=== PATIENT | female | born 1995 | race Caucasian/White ===

== ENCOUNTER 2023-11-11 06:49 | Emergency (ER) | payer SELFPAY ==
--- NOTE | ~2023-11-11 | CT_ITS ---
EXAMINATION: CT HEAD WITHOUT CONTRAST CLINICAL INFORMATION: Fall and syncope. EtOH. COMPARISON: None. TECHNIQUE: Contiguous axial imaging was performed from the skull base to vertex without intravenous administration of contrast. This CT examination was performed using dose optimization techniques as appropriate, variously including the following: *Automated exposure control *Adjustment of mA and/or kV according to patient size (this includes techniques or standardized protocols for targeted exams where dose is matched to indication/reason for exam; i.e. extremities or head) *Use of iterative reconstruction technique DLP: 704 mGy-cm. FINDINGS: There is no intracranial hemorrhage, large infarction, or mass lesion. There is no extra-axial collection. The ventricles are normal in size and configuration without evidence of hydrocephalus. The visualized paranasal sinuses and mastoid air cells are clear. CT/CT head/brain wo IV con IMPRESSION: No acute intracranial abnormality.
[2023-11-11 07:02] VITALS: BP 128/87; BP 136/84; PULSE 110; PULSE 96; RESP 20; TEMP 36.6; O2SAT 96; O2SAT 98; BMI 29.2
--- NOTE | 2023-11-11 07:09 | ED.ALCOHOL ---
HPI - Alcohol General Chief Complaint: Syncope Stated Complaint: ETOH Time Seen by Provider: 11/11/23 06:54 Source: patient, EMS, RN notes reviewed and old records reviewed Mode of arrival: EMS History of Present Illness HPI narrative: 28-year-old female with no known past medical history presenting to the ED of the EMS s/p called for intoxication and multiple falls/syncope. Patient admits to drinking EtOH, will not quantify. Denies being daily drinker or history of withdrawal seizures. Denies other drug use. reports patient was drinking EtOH, had a mechanical fall with head strike, and then had a syncopal episode witnessed by himself. EMS admits patient syncopized upon their arrival, no witnessed seizure-like activity or incontinence. Patient awake and alert since witnessed syncope with EMS, agitated. Patient does not remember incidents. Reports mild headache/feeling foggy at present. Denies neck/back pain, CP/SOB, abdominal pain Related Data Allergies Allergy/AdvReac Type Severity Reaction Status Date / Time pollen extracts Allergy Unknown Verified 11/11/23 07:19 Review of Systems Review of Systems: Constitutional: No Fever, No Chills Cardiovascular: No Chest Pain, No SOB Respiratory: No Cough Gastrointestinal: No Nausea, No Vomiting, No Abdominal pain Musculoskeletal: No joint pain, No Myalgias, No Joint Swelling Skin: No Skin Lesions, No rash Neuro: No Weakness, +head strike, +syncope History limited due to patient's acute mental status Yes all other systems are reviewed and are negative Constitutional: Constitutional: Reports as per [facility] Past Medical History Attestation statement: The following information was validated with the patient. Source: old records reviewed Social History Social History Advance Directives: No Advance Directives Information Provided: No Physical Exam ED Vital Signs: Vital Signs - 24 hr 11/11/23 07:02 Temperature 97.8 F Pulse Rate 96 Respiratory Rate 20 Blood Pressure 128/87 Pulse Oximetry 96 Oxygen Delivery Method Room Air BMI result Body Mass Index 29.2 Const Other: Agitated, combative but redirectable at this time. ETOH odor on breath. No evidence of trauma. General: no acute distress, alert and awake Orientation/consciousness: patient oriented x3 HENMT Head: Yes normal to inspection, Yes atraumatic, No Ayala's sign and No raccoon eyes Ears: hearing grossly normal bilaterally General nose exam: Normal external nose present Face and sinus: Yes normal facial exam Eyes General: appearance normal, both eyes and all related structures EOM: EOMs intact bilaterally Neck Neck: Yes normal visual inspection and Yes no meningeal signs Resp Effort & Inspection: normal respiratory effort and no respiratory distress Cardio Rate: regular rate Heart sounds: S1 normal heart sound present and S2 normal heart sound present GI Inspection: Yes normal to inspection Palpation (GI): Soft to palpation, nontender, no guarding and not rigid Back/Spine/Pelvis Other: No midline cervical/thoracic/lumbar spinous tenderness/step-off or deformity Skin Rashes: no rashes Wounds: no wounds Neuro General: patient oriented x3, gait normal, tone normal, moves all extremities, no meningeal signs, no focal motor deficits and CN's II-XI intact bilaterally Cranial nerves: Yes CN's II-XII intact bilaterally Gait exam (Neuro): Normal gait present Extrem General: Yes normal to inspection Course Course Course Narrative: -801--patient by doorway attempting to flee the emergency department. Agitated. States she is currently on her menses which has been confirmed. Unlikely . Will obtain CT without test as patient states she cannot provide urine and is uncooperative -security aware & at bedside CT head/brain wo IV con IMPRESSION: No acute intracranial abnormality. Results discussed with patient in has been at bedside. Patient has remained awake and alert. Discussed worrisome signs and symptoms and strict return precautions, and when to return to the emergency department. They verbalized understanding and feel safe for discharge at this time. Medical Decision Making Medical Decision Making MDM Narrative: 28-year-old female with no known past medical history presenting to the ED of the EMS s/p called for intoxication and multiple falls/syncope. On exam vital signs stable, ETOH odor on breath, intoxicated, ambulating with steady gait, agitated, A&O x3. No evidence of trauma. Concern for EtOH intoxication vs ICH vs metabolic abnormalities. Lower suspicion for PE/ACS at this time. Security at bedside. Will obtain head CT. Please refer to course for remaining clinical decision making, interpretation of labs/imaging results, and discussions with consultants and/or family members. Differential Diagnosis Differential Diagnoses: The differential diagnosis associated with the presentation includes As above Independent Interpretation I performed an independent interpretation of an: CT Scan Radiology Impression Discussion of test interpretation with radiology: I have reviewed the radiologist's reading. Independent Historian Clinical information obtained from an independent historian. History obtained from or confirmed by: Spouse and EMS External Record Review External record reviewed: Inpatient record, Office record, Outpatient record, Prior outpatient labs, Prior outpatient radiology, Primary care record and Outside ED record Tests considered The following testing was considered but not selected: As above Social Determinants Patient?s care significantly limited by Social Determinants of Health including: Inadequate housing, Alcoholism and drug addiction in family and Problems related to primary support group Discharge Plan Discharge Clinical Impression: Alcohol intoxication, Syncope, Fall Patient Disposition: Home, Self-Care Instructions: Syncope (DC), Abuse of Alcohol (DC) Additional Instructions: Please avoid alcohol and drug use Please follow-up with her doctor You are always welcome to return to the emergency department. if Symptoms persist or worsen return to the ED Referrals: [facility] [Provider Group] [facility] [Outside] Physician,Unknown J [Primary Care Provider] - Interventions: ED Discharge Assessment Last Done: 11/11/23 09:04 Discharge Date/Time: 11/11/23 08:30
--- NOTE | 2023-11-11 07:37 | PC.NURSE ---
pt alert and oriented, vss. pt arrived via ems. pt's called ambulance due to concern of pt passing out and altered mental. per ambulance pt also passed out in front of them then got up. the fall was witnessed by her , head strike, pt has no memory of passing out. pt's sent in a container with various meds. pt denies drug use admits to drinking alcohol. pt walking around ed, not wanting to sit and answer questions, instead she keeps saying she wants to leave because she's fine. pt seen by provider and ct ordered.
== END 2023-11-11 08:30 | disposition home or self-care (01) ==
PROVIDERS: Emergency Provider Emergency Medicine
DX: F10.120 Alcohol abuse with intoxication, uncomplicated (principal); R55 Syncope and collapse; Y90.9 Presence of alcohol in blood, level not specified
CPT/HCPCS: 70450; 99283; 99284

== ENCOUNTER 2023-11-16 00:53 | Emergency (ER) | payer SELFPAY ==
--- NOTE | 2023-11-16 | ECG_ITS ---
Test Reason : PALPITATIONS Blood Pressure : / mmHG Vent. Rate : 098 BPM Atrial Rate : 098 BPM P-R Int : 160 ms QRS Dur : 084 ms QT Int : 342 ms P-R-T Axes : 061 000 030 degrees QTc Int : 436 ms Poor data quality, interpretation may be adversely affected Sinus rhythm with marked sinus arrhythmia Septal infarct , age undetermined Abnormal ECG No previous ECGs available Referred By: Generic ED Physician Electronically Signed By:Kwesi Gutierres
--- NOTE | ~2023-11-16 | CT_ITS ---
EXAMINATION: CT head/brain wo IV con CLINICAL INFORMATION: Reason for Exam cervantes COMPARISON: CT head without contrast 11/11/2023 TECHNIQUE: Contiguous axial imaging was performed from the skull base to vertex without intravenous contrast. Sagittal and coronal reformatted images were obtained. This CT examination was performed using dose optimization techniques as appropriate, variously including the following: * Automated exposure control * Adjustment of mA and/or kV according to patient size (this includes techniques or standardized protocols for targeted exams where dose is matched to indication/reason for exam; i.e. extremities or head) Use of iterative reconstruction technique DLP: 702 mGy-cm FINDINGS: No acute osseous or soft tissue abnormality. The mastoids are clear. Right maxillary sinus retention cyst. There is no evidence of acute intracranial hemorrhage or territorial infarction. No abnormal mass effect or midline shift is seen. Edwards to white matter differentiation is well preserved. No extra-axial fluid collections are identified. No hydrocephalus. No significant volume loss. There is no abnormal attenuation within the brain parenchyma. CT/CT head/brain wo IV con IMPRESSION: No acute intracranial abnormality including hemorrhage, mass effect, hydrocephalus, or acute territorial edematous infarction.
[2023-11-16 00:54] VITALS: BP 125/85; PULSE 118; RESP 18; TEMP 36.8; O2SAT 100; BMI 26.6
[2023-11-16 01:38] VITALS: BP 121/88; PULSE 112; O2SAT 98
[2023-11-16 01:39] VITALS: O2SAT 98
--- NOTE | 2023-11-16 01:46 | ECG_ITS ---
Test Reason : SYNCOPE Blood Pressure : / mmHG Vent. Rate : 109 BPM Atrial Rate : 109 BPM P-R Int : 164 ms QRS Dur : 086 ms QT Int : 352 ms P-R-T Axes : 065 001 042 degrees QTc Int : 474 ms Sinus tachycardia Septal infarct (cited on or before 16-NOV-2023) Abnormal ECG When compared with ECG of 16-NOV-2023 01:03, Questionable change in initial forces of Septal leads Referred By: Vivien Camarena Electronically Signed By:Kwesi Gutierres
--- NOTE | 2023-11-16 01:53 | ED_ITS ---
HPI - Syncope General Chief Complaint: Syncope Stated Complaint: Palpitations/Syncope Time Seen by Provider: 11/16/23 01:34 History of Present Illness HPI narrative: Patient is a 28-year-old female with a history of not being responsive generally weak patient fell on November 11 after drinking. Patient did not have any residual effect. Patient was acting normal until approximately 22:00 when she developed headache feeling not quite right dizzy patient was sent in for further evaluation for spinning sensation. No sudden in the family. No nausea no vomiting. No chest pain. Patient from home. The headache is mainly over the right side. It is associated with nausea. Related Data Allergies Allergy/AdvReac Type Severity Reaction Status Date / Time pollen extracts Allergy Unknown Verified 11/16/23 01:04 Review of Systems 2 Review of Systems: Positive headache Positive dizziness PMFSH Past Medical History Attestation statement: The following information was validated with the patient. Social History Social History Advance Directives: No Advance Directives Information Provided: No Physical Exam 2 Vital Signs: Vital Signs: Last Vital Signs Temp 97.8 F 11/16/23 03:53 Pulse 97 11/16/23 03:53 Resp 19 11/16/23 03:53 BP 107/74 11/16/23 03:53 Pulse Ox 98 11/16/23 03:53 O2 Del Method Room Air 11/16/23 03:53 BMI result Body Mass Index 26.6 Appearance: Alert. Oriented X3. No acute distress. Eyes: Pupils equal, round and reactive to light. ENT: Pharynx normal. Neck: Normal inspection. Neck supple. No lymph nodes noted. No crepitus CVS: Normal heart rate and rhythm. Pulses normal. Normal S1 and S2 Respiratory: No respiratory distress. Breath sounds normal. No Wheezing. No rales Abdomen: Soft and nontender. No rigidity. No distention. good BS x4 Skin: Skin warm and dry. Normal skin color. Normal skin turgor. Extremities: No lower extremity edema. Neurovascular intact to all extremities. No Lacerations. No Rash Neuro: Oriented X 3. No motor deficit. No sensory deficit. Moving all extermities. No slurred speech Medications Administered Discontinued Medications Generic Name Dose Route Start Last Admin Trade Name Freq PRN Reason Stop Dose Admin Diphenhydramine HCl 25 mg 11/16/23 01:46 11/16/23 02:12 Diphenhydramine Hcl 50 Mg/Ml Vial IVPUSH 11/16/23 01:47 25 mg ONCE ONE Administration Sodium Chloride 1,000 mls @ 999 mls/hr 11/16/23 02:00 11/16/23 03:30 Ns IV 11/16/23 03:00 Infused .Q1H1M MAIRNO Infusion Metoclopramide HCl 10 mg 11/16/23 01:46 11/16/23 02:12 Metoclopramide Hcl 10 Mg/2 Ml Vial IVPUSH 11/16/23 01:47 10 mg ONCE ONE Administration Medical Decision Making Medical Decision Making [facility] Narrative: Patient complaining of nonspecific dizziness not prior right. Spinning sensation. Patient's eyes rolled back. Now also complaining of headache that is excruciating over [address] scan of the head was done. There is no evidence of bleeding on the CT. Patient's symptoms started about 4 hours prior making subarachnoid hemorrhage on likely patient's EKG showed a sinus pattern heart rate is 109 [place] QRS QTC within normal limits there is no acute ST segment elevation she was given hydration. Her labs were checked. The grossly okay. Symptomatic Leonie feel improved. Patient has no leg swelling. No history of blood clots. No history of control pills. Unlikely to be PE. Question vertigo type symptoms. Patient's tox screen came back positive for marijuana. Positive for amphetamine question secondary to ADHD medication. Patient given migraine treatment with good results. Headache basically gone. Differential Diagnosis Differential Diagnoses: The differential diagnosis associated with the presentation includes Dehydration, subarachnoid hemorrhage, vertigo, migraine Lab Data [facility] Lab Attestation statement: I reviewed the patient's lab results. 11/16/23 02:07 11/16/23 02:07 Labs: Lab Results 11/16/23 11/16/23 11/16/23 Range/Units 02:07 02:07 04:00 WBC 7.4 (4.8-10.8) X10*3/uL RBC 4.27 (4.20-5.50) X10*6/uL Hgb 13.0 (12.0-16.0) g/dl Hct 38.0 (37.0-47.0) % MCV 89.0 (80.0-98.0) fL MCH 30.4 (27.0-33.0) pg MCHC 34.2 (31.0-35.0) g/dl RDW 12.7 (11.0-16.0) % Plt Count 320 (160-400) X10*3/uL MPV 10.0 (9.4-12.3) fL Immature Gran % (Auto) 0.1 (0.0-0.4) % Neut % (Auto) 70.3 (45-73) % Lymph % (Auto) 20.7 (20-40) % Becker % (Auto) 7.7 (2-11) % Eos % (Auto) 0.7 (0-4) % Baso % (Auto) 0.5 (0-2) % Lymph # (Auto) 1.5 (1.2-4.9) X10*3/uL Becker # (Auto) 0.6 (0.1-1.2) X10*3/uL Eos # (Auto) 0.1 (0.0-0.4) X10*3/uL Baso # (Auto) 0.0 (0.0-0.2) X10*3/uL Abs Immat Gran (auto) 0.01 (0.00-0.03) X10*3/uL Absolute Neuts (auto) 5.2 (2.0-8.3) x10*3/uL Absolute Nucleated RBC 0.000 (0.0-0.012) X10*3/uL Nucleated RBC % (auto) 0.0 (0.0-0.2) /100WBC Sodium 142 (135-145) mmol/L Potassium 3.6 (3.3-5.1) mmol/L Chloride 107 (96-108) mmol/L Carbon Dioxide 25 (22-29) mmol/L Anion Gap 14 (12-20) BUN 18 H (9-16) mg/dL Creatinine 0.85 (0.5-1.4) mg/dL Estim Creat Clear Calc 101.0 Estimated GFR > 60 Random Glucose 105 (60-115) mg/dL Calcium 9.3 (8.4-10.2) mg/dL Total Bilirubin 0.5 (0.0-1.0) mg/dL Direct Bilirubin 0.2 (0.0-0.5) mg/dL AST 17 (5-31) U/L ALT 16 (0-31) U/L Alkaline Phosphatase 55 (39-117) U/L Troponin I High Sens < 2.7 (<3.5-17.0) ng/L Total Protein 7.0 (6.5-8.0) g/dL Albumin 4.4 (3.5-5.0) g/dL Beta HCG, Quant < 2 mIU/mL Urine Color Yellow Urine Appearance Clear Urine pH 6.0 (5.0-9.0) Ur Specific [place] 1.025 (1.005-1.025) Urine Protein Negative (Neg-Trace) mg/dL Urine Glucose (UA) Negative (Negative) mg/dL Urine Ketones Trace (Negative) mg/dL Urine Blood Negative (Negative) Urine Nitrite Negative (Negative) Ur Leukocyte Esterase Trace H (Negative) Urine RBC 3-5 H (0-2) /HPF Urine WBC 0-5 (0-5) /HPF Ur Squamous Epith Cells 6-10 (0-2) /HPF Urine Bacteria Trace (None Seen) Hyaline Casts 0-2 (0-2) /LPF Urine Opiates Screen Not Detected (Not Detect) Urine Fentanyl Screen Not Detected (Not Detect) Ur Barbiturates Screen Not Detected (Not Detect) Ur Phencyclidine Scrn Not Detected (Not Detect) Ur Amphetamines Screen POSITIVE H (Not Detect) U Benzodiazepines Scrn Not Detected (Not Detect) Urine Cocaine Screen Not Detected (Not Detect) U Marijuana (THC) Screen POSITIVE H (Not Detect) Ethyl Alcohol < 10 Cancelled mg/dL Independent Interpretation I performed an independent interpretation of an: EKG (My interpretation patient's EKG showed a sinus rhythm heart rate is [address] QTC within normal limits is no acute ST segment elevation.) and CT Scan (CT head was grossly negative for bleeding) Radiology Impression Discussion of test interpretation with radiology: I have reviewed the radiologist's reading. Independent Historian Clinical information obtained from an independent historian. History obtained from or confirmed by: Spouse Prescription Management No need for antibiotic antiviral or pain medication here Social Determinants Patient?s care significantly limited by Social Determinants of Health including: Alcoholism and drug addiction in family Discharge Plan Discharge Clinical Impression: Vasovagal syncope, Dehydration, Migraine Patient Disposition: Home, Self-Care Instructions: Syncope (DC), Migraine Headache (ED), Dehydration (ED) Referrals: Physician,Unknown J [Primary Care Provider] - 11/18/23
[2023-11-16] MEDS: 0.9 % Sodium Chloride 1,000 ML 999 ML IV (02:08)
[2023-11-16] MEDS: diphenhydrAMINE HCL 50 MG/ML VIAL 25 MG IVPUSH (02:12)
[2023-11-16] MEDS: Metoclopramide HCl 10 MG/2 ML VIAL IVPUSH (02:12)
[2023-11-16 02:13] LABS: MANUAL DIFF FLAG NO
[2023-11-16 02:17] LABS: Basophils Percent Auto 0.5 % (0-2); Eosinophils Absolute Auto 0.1 X10*3/uL (0.0-0.4); Eosinophils Percent Auto 0.7 % (0-4); Imm Gran Abs Auto 0.01 X10*3/uL (0.00-0.03); Imm Gran Pct Auto 0.1 % (0.0-0.4); Lymphocytes Absolute Auto 1.5 X10*3/uL (1.2-4.9); Lymphocytes Percent Auto 20.7 % (20-40); Mean Corpuscular HGB Conc 34.2 g/dl (31.0-35.0); Mean Corpuscular Hemoglobin 30.4 pg (27.0-33.0); Monocytes Absolute Auto 0.6 X10*3/uL (0.1-1.2); Monocytes Percent Auto 7.7 % (2-11); Neutrophils Absolute Auto 5.2 x10*3/uL (2.0-8.3); Neutrophils Percent Auto 70.3 % (45-73); Platelet Count 320 X10*3/uL (160-400); Red Blood Count 4.27 X10*6/uL (4.20-5.50); Red Cell Distribution Width 12.7 % (11.0-16.0); White Blood Count 7.4 X10*3/uL (4.8-10.8)
[2023-11-16 02:31] LABS: Alanine Aminotransferase 16 U/L (0-31); Albumin Level 4.4 g/dL (3.5-5.0); Alkaline Phosphatase 55 U/L (39-117); Anion Gap 14 (12-20); Aspartate Amino Transferase 17 U/L (5-31); Bilirubin Direct 0.2 mg/dL (0.0-0.5); Bilirubin Total 0.5 mg/dL (0.0-1.0); Blood Urea Nitrogen 18 mg/dL (9-16); Calcium 9.3 mg/dL (8.4-10.2); Carbon Dioxide 25 mmol/L (22-29); Chloride 107 mmol/L (96-108); Estimated Glomerular Filt Rate > 60; Ethanol < 10 mg/dL; Glucose Random 105 mg/dL (60-115); Potassium 3.6 mmol/L (3.3-5.1); Sodium 142 mmol/L (135-145)
[2023-11-16 02:36] LABS: Troponin-I High Sensitivity < 2.7 ng/L (<3.5-17.0)
[2023-11-16 02:37] LABS: HCG Quantitative < 2 mIU/mL
[2023-11-16 03:40] VITALS: BP 110/61; PULSE 101; RESP 17; O2SAT 97
[2023-11-16 03:53] VITALS: BP 107/74; PULSE 97; RESP 19; TEMP 36.6; O2SAT 98
[2023-11-16 04:11] LABS: Appearance Urine Clear; Color Urine Yellow; Glucose Urine UA Negative (Negative); Leukocyte Esterase Urine Trace (Negative); Nitrite Urine Negative (Negative); Specific Gravity - Urine 1.025 (1.005-1.025); UMIC TRIGGER UACC YES; Urine Blood Negative (Negative); Urine Ketones Trace mg/dL (Negative); Urine Protein Negative (Neg-Trace)
[2023-11-16 04:16] LABS: Bacteria Urine Trace (None Seen); Hyaline Casts Urine 0-2 /LPF (0-2); WBC Urine 0-5 /HPF (0-5)
[2023-11-16 04:21] LABS: Amphetamine Screen Urine POSITIVE (Not Detect); Barbiturates, Urine Not Detected (Not Detect); Benzodiazepines Screen Urine Not Detected (Not Detect); Cannabinoid Screen Urine POSITIVE (Not Detect); Cocaine Screen Urine Not Detected (Not Detect); Fentanyl, urine Not Detected (Not Detect); Opiate Screen Urine Not Detected (Not Detect); Phencyclidine Screen Urine Not Detected (Not Detect)
== END 2023-11-16 05:08 | disposition home or self-care (01) ==
PROVIDERS: Emergency Provider Emergency Medicine Emergency Medical Services
DX: R55 Syncope and collapse (principal); E86.0 Dehydration; G43.909 Migraine, unspecified, not intractable, without status migrainosus; Z79.899 Other long term (current) drug therapy; F12.90 Cannabis use, unspecified, uncomplicated
CPT/HCPCS: 36415; 70450; 80048; 80076; 80307; 81001; 84484; 84702; 85025; 93005; 96361; 96374; 96375; 99284; 99285; J1200; J2765

== ENCOUNTER → 2023-11-16 01:03 | Outpatient (BNV) | payer SELFPAY | PROVIDERS: Emergency Provider Emergency Medicine Emergency Medical Services; Visit Provider Internal Medicine Cardiovascular Disease | DX: I49.9 Cardiac arrhythmia, unspecified (principal); R94.31 Abnormal electrocardiogram [ECG] [EKG]; R00.0 Tachycardia, unspecified | CPT/HCPCS: 93010 ==

== ENCOUNTER 2023-12-05 17:29 | Emergency (ER) | payer MEDICAID, SELFPAY ==
[2023-12-05 17:55] VITALS: BP 117/74; PULSE 73; RESP 18; TEMP 36.6; O2SAT 100; BMI 28.3
--- NOTE | 2023-12-05 18:04 | ED.FEMALEGU ---
HPI - Female Genitourinary General Chief complaint: Urogenital-Female Stated complaint: abd pain, UTI? sweats, fever, back pain Time Seen by Provider: 12/06/23 00:09 Source: patient, RN notes reviewed and old records reviewed Mode of arrival: ambulatory Limitations: no limitations History of Present Illness HPI Narrative: 28-year-old female presents for evaluation of burning with urination, fevers, chills. Patient believes that she has a UTI as she has had similar symptoms in the past She is also concerned that she may be She is sexually active and not on control. Her last menstrual period was 11/07/2023 Denies any severe lower abdominal pain or flank pain. Related Data Previous Rx's Medication Instructions Recorded amoxicillin 500 mg capsule 500 mg PO Q12H #10 caps 12/06/23 Allergies Allergy/AdvReac Type Severity Reaction Status Date / Time pollen extracts Allergy Unknown Verified 11/16/23 01:04 Review of Systems Constitutional: Constitutional: Denies body ache(s), Reports chills, Reports fever(s) and Denies headache(s) Eyes: Eyes: Denies blurry vision ENT: Denies headache(s) and Denies sore throat Cardiovascular: Cardiovascular: Denies chest pain and Denies dyspnea Respiratory: Respiratory: Denies cough and Denies dyspnea Gastrointestinal: Gastrointestinal: Denies abdominal pain, Denies nausea and Denies vomiting Genitourinary: Genitourinary: Reports difficulty voiding, Reports dysuria and Reports pelvic pain Musculoskeletal: Musculoskeletal: Denies back pain Integumentary/Breasts: Skin/Breast: Denies rash Neurologic: Denies headache(s) PMFSH Social History Social History Advance Directives: No Advance Directives Information Provided: No Physical Exam Vital Signs: Vital Signs: Last Vital Signs Temp 98.9 F 12/06/23 02:26 Pulse 86 12/06/23 02:26 Resp 17 12/06/23 02:26 BP 117/74 12/05/23 17:55 Pulse Ox 99 12/06/23 02:26 O2 Del Method Room Air 12/06/23 02:26 BMI result Body Mass Index 28.3 Const: General: healthy appearing, comfortable, no acute distress, alert and awake Nutritional Appearance: well nourished Orientation/consciousness: patient oriented x3 HEENT: Head: Yes normocephalic and Yes atraumatic Eyes: Eyelids: Yes eyelids normal Conjunctivae: conjunctivae normal Sclerae: sclerae normal Corneas: corneas normal Pupils: Equal, round and reactive pupils present EOM: EOMs intact bilaterally Neck: Neck: Yes full ROM Resp: Effort & Inspection: normal respiratory effort, able to speak in complete sentences and not labored GI: Inspection: No distended Palpation (GI): Soft to palpation, not firm, nontender, no guarding and not rigid Skin: General skin exam: elasticity normal Neuro: General: patient oriented x3 Cranial nerves: Yes Equal, round and reactive pupils present and Yes Bilaterally intact EOM present Cognition (Neuro): normal cognition Course Course Course Narrative: RME; 28-year-old female presents to ED for dysuria, back pain flank pain chills, nausea and lower abdominal discomfort. Patient states no recent trauma. Patient last menstruation 11/07/2023. Labs ordered Medications Administered Discontinued Medications Generic Name Dose Route Start Last Admin Trade Name Freq PRN Reason Stop Dose Admin Amoxicillin 500 mg 12/06/23 02:15 12/06/23 02:23 Amoxicillin 500 Mg Capsule PO 12/06/23 02:16 500 mg ONCE ONE Administration Medical Decision Making Medical Decision Making [facility] Narrative: 28-year-old female presents for evaluation of burning with urination and pelvic pain. She feels this is similar to when she has had a UTI in the past. She is also concerned that she may be . Her labs are significant for a serum HCG of 271. Ultrasound of the pelvis cannot identify any gestational sac. This is likely due to early , however but ultimately cannot completely rule out ectopic . I recommend the patient return in 4 days for repeat hCG and ultrasound. Patient's UA appears infected but she does not appear septic, we will treat with amoxicillin due to the fact that she is . Patient is stable for discharge at this time. All questions were answered Differential Diagnosis Differential Diagnoses: The differential diagnosis associated with the presentation includes UTI Pelvic pain Cystitis Pyelonephritis Lab Data [facility] Lab Attestation statement: I reviewed the patient's lab results. Leukocytosis of 13.3 K with a left shift. No significant anemia, normal platelet count. Patient's chloride is this but normal at 110. Unsure etiology but could be normal variant for her, no other electrolyte abnormalities. Normal renal function 12/05/23 18:29 12/05/23 18:29 Labs: Lab Results 12/05/23 12/06/23 Range/Units 18:29 00:46 WBC 13.3 H (4.8-10.8) X10*3/uL RBC 4.36 (4.20-5.50) X10*6/uL Hgb 13.4 (12.0-16.0) g/dl Hct 38.6 (37.0-47.0) % MCV 88.5 (80.0-98.0) fL MCH 30.7 (27.0-33.0) pg MCHC 34.7 (31.0-35.0) g/dl RDW 12.6 (11.0-16.0) % Plt Count 312 (160-400) X10*3/uL MPV 10.6 (9.4-12.3) fL Immature Gran % (Auto) 0.3 (0.0-0.4) % Neut % (Auto) 81.3 H (45-73) % Lymph % (Auto) 11.9 L (20-40) % [place] % (Auto) 5.6 (2-11) % Eos % (Auto) 0.5 (0-4) % Baso % (Auto) 0.4 (0-2) % Lymph # (Auto) 1.6 (1.2-4.9) X10*3/uL [place] # (Auto) 0.7 (0.1-1.2) X10*3/uL Eos # (Auto) 0.1 (0.0-0.4) X10*3/uL Baso # (Auto) 0.1 (0.0-0.2) X10*3/uL Abs Immat Gran (auto) 0.04 H (0.00-0.03) X10*3/uL Absolute Neuts (auto) 10.8 H (2.0-8.3) x10*3/uL Absolute Nucleated RBC 0.000 (0.0-0.012) X10*3/uL Nucleated RBC % (auto) 0.0 (0.0-0.2) /100WBC Sodium 141 (135-145) mmol/L Potassium 3.9 (3.3-5.1) mmol/L Chloride 110 H (96-108) mmol/L Carbon Dioxide 24 (22-29) mmol/L Anion Gap 11 L (12-20) BUN 15 (9-16) mg/dL Creatinine 0.72 (0.5-1.4) mg/dL Estim Creat Clear Calc 114.2 Estimated GFR > 60 Random Glucose 92 (60-115) mg/dL Calcium 9.6 (8.4-10.2) mg/dL Total Bilirubin 0.5 (0.0-1.0) mg/dL Direct Bilirubin 0.2 (0.0-0.5) mg/dL AST 12 (5-31) U/L ALT 15 (0-31) U/L Alkaline Phosphatase 35 L (39-117) U/L Total Protein 7.1 (6.5-8.0) g/dL Albumin 4.6 (3.5-5.0) g/dL Lipase 19 (8-78) U/L Beta HCG, Quant 271 mIU/mL Urine Color Yellow Urine Appearance Cloudy Urine pH 5.5 (5.0-9.0) Ur Specific [place] >= 1.030 H (1.005-1.025) Urine Protein 30 (1+) H (Neg-Trace) mg/dL Urine Glucose (UA) Negative (Negative) mg/dL Urine Ketones Negative (Negative) mg/dL Urine Blood Moderate (2+) H (Negative) Urine Nitrite Negative (Negative) Ur Leukocyte Esterase Small (1+) H (Negative) Urine RBC 6-10 H (0-2) /HPF Urine WBC >50 H (0-5) /HPF Ur Squamous Epith Cells 0-2 (0-2) /HPF Urine Bacteria None Seen (None Seen) Hyaline Casts 0-2 (0-2) /LPF Urine Test WEAKLY POSITIVE H (NEGATIVE) Radiology Impression Discussion of test interpretation with radiology: I have reviewed the radiologist's reading. (No gestational sac or intrauterine gestation identified.) Discharge Plan Discharge Clinical Impression: Urinary tract infection, at early stage Patient Disposition: Home, Self-Care Instructions: (ED), Urinary Tract Infection in (ED) Additional Instructions: You are , based on your last menstrual cycle and your hormone of 271 it is very early in your You also have a urinary tract infection Take amoxicillin as directed and complete the course Return in 4 days for repeat hCG and repeat ultrasound Do not take ibuprofen for pain, you may take Tylenol which is safe in Follow-up with your primary doctor and OBGYN You should start taking vitamins Prescriptions: New amoxicillin 500 mg capsule 500 mg PO Q12H Qty: 10 0RF Interventions: ED Discharge Assessment Last Done: 12/06/23 02:27 Discharge Date/Time: 12/06/23 02:28
[2023-12-06 02:26] VITALS: PULSE 86; RESP 17; TEMP 37.2; O2SAT 99
== END 2023-12-06 02:28 | disposition home or self-care (01) ==
PROVIDERS: Emergency Provider Emergency Medicine
DX: O23.41 Unspecified infection of urinary tract in pregnancy, first trimester (principal); N39.0 Urinary tract infection, site not specified; Z3A.00 Weeks of gestation of pregnancy not specified
CPT/HCPCS: 36415; 76801; 76817; 80048; 80076; 81001; 81003; 81025; 83690; 84702; 85025; 87086; 99283; 99284

== ENCOUNTER 2023-12-25 08:47 | Emergency (ER) | payer MEDICAID, SELFPAY ==
[2023-12-25 09:11] VITALS: BP 112/70; BP 113/72; PULSE 101; PULSE 108; RESP 18; TEMP 37.3; O2SAT 97; O2SAT 98; BMI 30.3
--- NOTE | 2023-12-25 09:51 | ED.URI ---
HPI - URI/Sore Throat General Chief Complaint: Upper Respiratory Symptoms Stated Complaint: +COVIDN/V,WEAK,COUGH,SOB 97% RA PER EMS Time Seen by Provider: 12/25/23 09:06 Source: patient and RN notes reviewed Mode of arrival: ambulatory Limitations: no limitations History of Present Illness HPI Narrative: This is a 28-year-old female, 7 weeks , presenting to the emergency department with complaints of cough, shortness of breath, nausea, vomiting, weakness, fevers, and epigastric/left upper quadrant pain. Patient states that 2 nights ago she developed body aches, and cough. She states that yesterday her symptoms worsened and she reported to [facility] where she tested positive for COVID. She also received IV fluids and IV Zofran which provided her with some relief. She states that upon wakening this morning she feels as though her symptoms have worsened, stating she is now having worsening nausea and vomiting and has been unable to tolerate p.o. secondary to vomiting. She last took Tylenol this morning at 7:30 a.m.. Denies any diarrhea or constipation. No vaginal bleeding or discharge. No suprapubic tenderness. She reports that her family is sick at home with COVID as well. No other complaints or concerns at this time. MD elicited complaint: fever, cough and nasal congestion Onset (ago): day(s) Consistency: constant and progressively worsening Severity: moderate Able to tolerate fluids by mouth: No Relieving factors: nothing Context: sick contacts Associated symptoms: fever, chills, myalgias, nasal congestion, cough, chest pain, shortness of breath, abdominal pain, nausea, vomiting and diarrhea Treatments prior to arrival: none Related Data Previous Rx's Medication Instructions Recorded amoxicillin 500 mg capsule 500 mg PO Q12H #10 caps 12/06/23 Allergies Allergy/AdvReac Type Severity Reaction Status Date / Time pollen extracts Allergy Unknown Verified 11/16/23 01:04 Review of Systems Review of Systems: Yes all other systems are reviewed and are negative Constitutional: Constitutional: Reports as per [facility] Past Medical History Attestation statement: The following information was validated with the patient. Social History Social History Advance Directives: No Physical Exam Vital Signs: Vital Signs: Last Vital Signs Temp 99.1 F 12/25/23 12:00 Pulse 90 12/25/23 12:00 Resp 18 12/25/23 12:00 BP 121/86 12/25/23 12:00 Pulse Ox 98 12/25/23 12:00 O2 Del Method Room Air 12/25/23 12:00 BMI result Body Mass Index 30.3 Const: General: cooperative, comfortable and no acute distress Orientation/consciousness: patient oriented x3 Limitations: no limitations HEENT: Head: Yes normal to inspection, Yes normocephalic and Yes atraumatic Ears: hearing grossly normal bilaterally and TM's normal bilaterally General nose exam: Normal external nose present Face and sinus: Yes normal facial exam Mouth: Normal oral and palatal mucosa present, oropharynx normal and moist mucous membranes Throat: Yes posterior oropharynx normal, Yes tonsils normal and Yes uvula midline Eyes: General: appearance normal, both eyes and all related structures Eyelids: Yes eyelids normal Conjunctivae: conjunctivae normal Sclerae: sclerae normal Pupils: Equal, round and reactive pupils present EOM: EOMs intact bilaterally Neck: Neck: Yes normal visual inspection, Yes full ROM and Yes no lymphadenopathy Lymphatic: no lymphadenopathy noted Chest: Chest palpation & inspection: normal inspection of the chest Resp: Effort & Inspection: normal respiratory effort and able to speak in complete sentences Auscultation: clear to auscultation bilaterally, no crackles, no rales, no rhonchi and no wheezes Cardio: Rate: regular rate Rhythm: regular rhythm Heart sounds: S1 normal heart sound present and S2 normal heart sound present GI: Other: Epigastric tenderness to palpation and left upper quadrant tenderness, no lower abdominal tenderness, rebound or guarding. Inspection: Yes normal to inspection Skin: General skin exam: no rashes or lesions noted Trauma: no lacerations or abrasions Wounds: no wounds Neuro: General: patient oriented x3 and moves all extremities Cranial nerves: Yes Equal, round and reactive pupils present Extrem: General: Yes normal to inspection Right upper extremity: normal to inspection Left upper extremity: normal to inspection Right lower extremity: normal to inspection Left lower extremity: normal to inspection Course Reevaluation(s) Reevaluation #1: Labs returned, hypokalemic at 3.2, given 1 dose of potassium 40 mEq by mouth. Advised patient to follow-up with PCP or OBGYN to ensure that her potassium has improved. She is eating and drinking without difficulty. Denies any nausea or vomiting since receiving IV fluids and Zofran. Troponin negative, beta quant [id number]. No leukocytosis, patient tested positive for COVID. Likely the source of her symptoms. Discussed the importance of following up with OBGYN as well as continuing to stick to a bland diet, stay well hydrated. She was also given Tylenol. She states that her symptoms are much better and she is feeling comfortable enough to go home. She states that she has follow-up with OBGYN Patient given return precautions. Patient understands agrees with plan. Patient stable for discharge. Received medical records from [facility]. Patient was seen there yesterday where she had an ultrasound performed. Transvaginal ultrasound was performed, single live intrauterine estimated gestation weeks 3 days. Patient has not had any lower abdominal cramping, vaginal bleeding or discharge at today's visit. Medications Administered Discontinued Medications Generic Name Dose Route Start Last Admin Trade Name Freq PRN Reason Stop Dose Admin Acetaminophen 975 mg 12/25/23 13:23 12/25/23 13:44 Acetaminophen 325 Mg Tablet PO 12/25/23 13:24 975 mg ONCE ONE Administration Sodium Chloride 1,000 mls @ 999 mls/hr 12/25/23 09:54 12/25/23 11:30 Ns IV 12/25/23 10:54 Infused .Q1H1M ONE Infusion Sodium Chloride 1,000 mls @ 999 mls/hr 12/25/23 11:34 12/25/23 13:06 Ns IV 12/25/23 12:34 Infused .Q1H1M ONE Infusion Ondansetron HCl 4 mg 12/25/23 09:55 12/25/23 10:15 Ondansetron Hcl 4 Mg/2 Ml Vial IVPUSH 12/25/23 09:56 4 mg ONCE ONE Administration Potassium Chloride 40 meq 12/25/23 13:23 12/25/23 13:45 Potassium Chloride Er 20 Meq Tab.Er.Prt PO 12/25/23 13:24 40 meq ONCE ONE Administration Medical Decision Making Medical Decision Making [facility] Narrative: This is a 28-year-old female presenting to the emergency department for evaluation shortness, cough, nausea, vomiting, left upper quadrant pain and epigastric pain. She tested positive for COVID yesterday at [facility] where she was also given IV fluids and IV Zofran. She also had an ultrasound which revealed normal intrauterine gestation. On arrival, patient nontoxic appearing, appears to be in no acute distress. Mildly tachycardic at 1:01 a.m., patient afebrile. Dry mucous membranes. Abdomen is soft, with tenderness palpation in the epigastrium and left upper quadrant, no suprapubic tenderness, rebound or guarding. No vaginal bleeding or discharge. Plan: IV fluids, basic labs, EKG Differential Diagnosis Differential Diagnoses: The differential diagnosis associated with the presentation includes COVID, flu, electrolyte abnormality, gastritis, Admission/Observation Consideration of admission/observation: Escalation of care including admission/observation considered Patient would have been admitted to the hospital had her work up had any findings where hospital admission was appropriate and her clinical presentation warranted hospital admission. Lab Data [facility] Lab Attestation statement: I reviewed the patient's lab results. 12/25/23 10:15 12/25/23 10:14 Labs: Lab Results 12/25/23 12/25/23 Range/Units 10:14 10:15 WBC 7.7 (4.8-10.8) X10*3/uL RBC 3.96 L (4.20-5.50) X10*6/uL Hgb 12.1 (12.0-16.0) g/dl Hct 34.3 L (37.0-47.0) % MCV 86.6 (80.0-98.0) fL MCH 30.6 (27.0-33.0) pg MCHC 35.3 H (31.0-35.0) g/dl RDW 11.7 (11.0-16.0) % Plt Count 231 D (160-400) X10*3/uL MPV 9.8 (9.4-12.3) fL Immature Gran % (Auto) 0.3 (0.0-0.4) % Neut % (Auto) 87.4 H (45-73) % Lymph % (Auto) 5.0 L (20-40) % [place] % (Auto) 7.2 (2-11) % Eos % (Auto) 0.0 (0-4) % Baso % (Auto) 0.1 (0-2) % Lymph # (Auto) 0.4 L (1.2-4.9) X10*3/uL [place] # (Auto) 0.6 (0.1-1.2) X10*3/uL Eos # (Auto) 0.0 (0.0-0.4) X10*3/uL Baso # (Auto) 0.0 (0.0-0.2) X10*3/uL Abs Immat Gran (auto) 0.02 (0.00-0.03) X10*3/uL Absolute Neuts (auto) 6.7 (2.0-8.3) x10*3/uL Absolute Nucleated RBC 0.000 (0.0-0.012) X10*3/uL Nucleated RBC % (auto) 0.0 (0.0-0.2) /100WBC Sodium 136 (135-145) mmol/L Potassium 3.2 L (3.3-5.1) mmol/L Chloride 105 (96-108) mmol/L Carbon Dioxide 21 L (22-29) mmol/L Anion Gap 13 (12-20) BUN 8 L (9-16) mg/dL Creatinine 0.66 (0.5-1.4) mg/dL Estim Creat Clear Calc 128.8 Estimated GFR > 60 Random Glucose 75 (60-115) mg/dL Calcium 9.1 (8.4-10.2) mg/dL Total Bilirubin 0.9 (0.0-1.0) mg/dL Direct Bilirubin 0.4 (0.0-0.5) mg/dL AST 13 (5-31) U/L ALT 13 (0-31) U/L Alkaline Phosphatase 35 L (39-117) U/L Troponin I High Sens < 2.7 (<3.5-17.0) ng/L Total Protein 6.9 (6.5-8.0) g/dL Albumin 4.2 (3.5-5.0) g/dL Lipase 8 (8-78) U/L Beta HCG, Quant 52167 mIU/mL COVID-19 (LILO) Positive A (Negative) COVID-19 Clin Com See Note Influenza Type A (BRO) Negative (Negative) Influenza Type B (BRO) Negative (Negative) Influenza A & B Note See Note Independent Interpretation I performed an independent interpretation of an: EKG Interpretation: EKG normal sinus rhythm at a ventricular rate of 97 beats per minute, [place] interval 136, no ST elevation or depression. Discharge Plan Discharge Clinical Impression: COVID-19, Nausea & vomiting, Hypokalemia Patient Disposition: Home, Self-Care Instructions: Hypokalemia (ED), Acute Nausea and Vomiting (ED), COVID-19 (Coronavirus Disease 2019) (ED) Additional Instructions: Your seen in the hospital today due to ongoing cough, nausea, vomiting. You tested positive for COVID in the department today. Your potassium level was slightly low, we replenish this oral potassium. This is likely due to the nausea and vomiting you have been having. Please follow-up with your primary care physician or OBGYN in 3-5 days to ensure that your potassium have maintain a normal level. Please follow-up with your OBGYN as scheduled. If you develop any new or worsening symptoms including but not limited to vaginal bleeding, lower abdominal pain, inability to tolerate fluids by mouth, chest pain or shortness or shortness of breath, please return for re-evaluation. COVID-19 stands for coronavirus disease 2019. It is caused by a virus called SARS-CoV-2. The virus first appeared in late 2019 and quickly spread around the world. Many people only have mild cold symptoms. Some people have digestive problems, like nausea or diarrhea. There have also been some reports of rashes or other skin symptoms. For most people, symptoms get better within a few days to weeks.? Some people with COVID-19 continue to have some symptoms for weeks or months.? Drink plenty of fluids and get plenty of rest. Take Tylenol as needed for symptoms. If any new or worsening symptoms occur including but not limited to chest pain or shortness breath, please return for re-evaluation. What should I do if I have symptoms or test positive?If you have a fever, cough, cold symptoms, or other symptoms of COVID-19, get tested. You can use the flowchart to figure out when to test and what to do based on the results If you?test positive: ? Self-isolate for at least 5 days, even if you feel well. Self-isolation means staying apart from other people, even the people you live with. The 5 days should start the day?after?you first noticed symptoms or got a positive test result. If you have a weak immune system or if you still have a fever, you might need to self-isolate for longer than 5 days. ?After self-isolating for 5 days, wear a mask around all other people for at least 5 more days. Some people use antigen tests to decide how long to keep wearing the mask. If you do this, you can stop wearing a mask once you test negative on 2 antigen tests done at least 2 days apart. ?If your symptoms are severe, or if you are at risk for severe illness,?call?your doctor or nurse. They can tell you if you need to be seen. Depending on your situation, they might suggest treatment. Prescriptions: No Action amoxicillin 500 mg capsule 500 mg PO Q12H Qty: 10 0RF Stand Alone Forms: Work/School Release Interventions: ED Discharge Assessment Last Done: 12/25/23 14:14 Discharge Date/Time: 12/25/23 14:17
--- NOTE | 2023-12-25 09:54 | ECG_ITS ---
Test Reason : chest pain Blood Pressure : / mmHG Vent. Rate : 097 BPM Atrial Rate : 097 BPM P-R Int : 136 ms QRS Dur : 082 ms QT Int : 356 ms P-R-T Axes : 022 -15 016 degrees QTc Int : 452 ms Normal sinus rhythm Normal ECG When compared with ECG of 16-NOV-2023 01:55, No significant change was found Referred By: Madison Lugo Electronically Signed By:Kwesi Gutierres
[2023-12-25] MEDS: ondansetron HCL 4 MG/2 ML VIAL IVPUSH (10:15)
[2023-12-25] MEDS: 0.9 % Sodium Chloride 1,000 ML 999 ML IV ×2 (10:15→11:37)
[2023-12-25 10:21] LABS: MANUAL DIFF FLAG NO
[2023-12-25 10:23] LABS: Basophils Percent Auto 0.1 % (0-2); Hematocrit 34.3 % (37.0-47.0); Hemoglobin 12.1 g/dl (12.0-16.0); Imm Gran Abs Auto 0.02 X10*3/uL (0.00-0.03); Imm Gran Pct Auto 0.3 % (0.0-0.4); Lymphocytes Absolute Auto 0.4 X10*3/uL (1.2-4.9); Mean Corpuscular HGB Conc 35.3 g/dl (31.0-35.0); Mean Corpuscular Hemoglobin 30.6 pg (27.0-33.0); Mean Corpuscular Volume 86.6 fL (80.0-98.0); Mean Platelet Volume 9.8 fL (9.4-12.3); Monocytes Absolute Auto 0.6 X10*3/uL (0.1-1.2); Monocytes Percent Auto 7.2 % (2-11); Neutrophils Absolute Auto 6.7 x10*3/uL (2.0-8.3); Neutrophils Percent Auto 87.4 % (45-73); Platelet Count 231 X10*3/uL (160-400); Red Blood Count 3.96 X10*6/uL (4.20-5.50); Red Cell Distribution Width 11.7 % (11.0-16.0); White Blood Count 7.7 X10*3/uL (4.8-10.8)
--- NOTE | 2023-12-25 10:29 | PC.NURSE ---
patient a&ox3, iv inserted, labs drawn, swabs obtained, ekg performed, pt medicated for nausea and with IVF, pt has chest discomfort, speaking in full sentences, respirations equal and non labored, call jacobo within reach, will continue to monitor.
[2023-12-25 10:39] LABS: Alanine Aminotransferase 13 U/L (0-31); Albumin Level 4.2 g/dL (3.5-5.0); Alkaline Phosphatase 35 U/L (39-117); Anion Gap 13 (12-20); Aspartate Amino Transferase 13 U/L (5-31); Bilirubin Direct 0.4 mg/dL (0.0-0.5); Bilirubin Total 0.9 mg/dL (0.0-1.0); Blood Urea Nitrogen 8 mg/dL (9-16); Calcium 9.1 mg/dL (8.4-10.2); Carbon Dioxide 21 mmol/L (22-29); Chloride 105 mmol/L (96-108); Creatinine Clr Calc Pharmacy 128.8; Estimated Glomerular Filt Rate > 60; Glucose Random 75 mg/dL (60-115); Lipase 8 U/L (8-78); Potassium 3.2 mmol/L (3.3-5.1); Sodium 136 mmol/L (135-145); Total Protein 6.9 g/dL (6.5-8.0)
[2023-12-25 10:44] LABS: IDNOW Serial# 9DB6401D; Influenza A Negative (Negative); Influenza B2 Negative (Negative)
[2023-12-25 10:46] LABS: Troponin-I High Sensitivity < 2.7 ng/L (<3.5-17.0)
[2023-12-25 10:47] LABS: COVID-19 Test Positive (Negative); IDNOW Serial# 152EDE1D
[2023-12-25 11:26] LABS: HCG Quantitative 55507 mIU/mL
[2023-12-25 12:00] VITALS: BP 121/86; PULSE 90; RESP 18; TEMP 37.3; O2SAT 98
[2023-12-25] MEDS: Acetaminophen 325 MG TABLET 975 MG PO (13:44)
[2023-12-25] MEDS: Potassium Chloride ER 20 MEQ TAB.ER.PRT 40 MEQ PO (13:45)
--- NOTE | 2023-12-25 13:46 | PC.NURSE ---
pt medicated per order
== END 2023-12-25 14:17 | disposition home or self-care (01) ==
PROVIDERS: Physician Assistant Medical; Emergency Provider Emergency Medicine
DX: O26.91 Pregnancy related conditions, unspecified, first trimester (principal); Z3A.01 Less than 8 weeks gestation of pregnancy; U07.1 COVID-19; R07.89 Other chest pain; R05.9 Cough, unspecified; R06.02 Shortness of breath; E87.6 Hypokalemia; R11.2 Nausea with vomiting, unspecified; Z79.899 Other long term (current) drug therapy
CPT/HCPCS: 36415; 80048; 80076; 83690; 84484; 84702; 85025; 87502; 87635; 93005; 96361; 96374; 99284; J2405

== ENCOUNTER → 2023-12-25 09:54 | Outpatient (BNV) | payer MEDICAID, SELFPAY | PROVIDERS: Emergency Provider Emergency Medicine; Visit Provider Internal Medicine Cardiovascular Disease | DX: R07.9 Chest pain, unspecified (principal) | CPT/HCPCS: 93010 ==